=== PATIENT | female | born 1985 | race Two or more races ===

== ENCOUNTER 2025-05-11 16:35 | Outpatient (CLI) | payer OTHER | END 2025-05-11 16:54 | disposition home or self-care (01) | LOC: NST 16:35 | PROVIDERS: ATTEND Obstetrics & Gynecology | DX: Z34.83 Encounter for supervision of other normal pregnancy, third trimester (principal) ==

== ENCOUNTER 2025-07-05 14:45 | Inpatient (IN) | payer OTHER ==
[~2025-07-05] VITALS: Ht 172.7 cm; Wt 3.6 kg
[2025-07-12 12:58] VITALS: BP 114/75
[2025-07-12 13:17] LABS: BASO % 0.2 % (0.1-1.2); EOS # 0.13 (0.04-0.54); EOS % 1.4 % (0.7-7.0); LYMPH # 2.02 (1.18-3.74); LYMPH % 21.8 % (19.3-53.1); MEAN PLATELET VOLUME 9.40 fl (9.4-12.4); MONO # 0.73 (0.24-0.82); MONO % 7.9 % (4.7-12.5); NEUT # 6.34 (1.56-6.13); NEUT % 68.4 % (34.0-71.1); RED CELL DISTRIBUTION WIDTH 14.1 % (11.6-14.4)
[2025-07-12] MEDS ORDERED: PRENATABS FA T1 EACH PO (13:24)
[2025-07-12] MEDS ORDERED: RINGERS SOLUTION,LACTATED 1,000 ML IV SCH (13:30)
[2025-07-12 13:36] LABS: INR 0.99
[2025-07-12 14:00] LABS: URINE APPEARANCE Cloudy; URINE BILIRRUBIN Negative (NEGATIVE); URINE BLOOD Negative; URINE COLOR Yellow; URINE GLUCOSE Negative (NEGATIVE); URINE KETONE Negative (NEGATIVE); URINE LEUKOCYTE Trace; URINE NITRATE Negative; URINE PROTEIN Negative (NEGATIVE); URINE UROBILINOGEN 0.2 E.U./dl
[2025-07-12 14:04] LABS: URINE BACTERIA 3246.0 uL (0.0-1933); URINE CAST 4.98 uL (0.0-1.40); URINE EPITHELIAL CELLS 15.5 uL (0.0-38.8); URINE RBC 2.7 uL (0.0-20.8); URINE WBC 112.9 uL (0.0-23.2)
[2025-07-12 14:26] LABS: ALT/SGPT 14.0 U/L (12-78); AST/SGOT 16.0 U/L (15-37); BILIRUBIN TOTAL 0.33 mg/dL (0.3-1.2); BUN CREA RATIO 15.0 (7.0-25.0); CREATININE SERUM 0.67 mg/dL (0.55-1.02); GFR 103.34; GLOBULINA 3.4 G/DL (2.4-3.5); GLUCOSE FASTING 89.0 mg/dL (65-100); OSMOLALITY SERUM 274.0 MOSM/KG (275-295)
[2025-07-12 14:30] LABS: TYPE CELLS SQUAMOUS; URINE MUCUS MODERATE
[2025-07-12] MEDS ORDERED: MORPHINE SULFATE 4 MG/ML CARTRIDGE IV PRN (15:00)
[2025-07-12 15:19] VITALS: BP 104/68
[2025-07-12] MEDS ORDERED: MISOPROSTOL 25 MCG TABLET VAG NR (17:15)
[2025-07-12] MEDS ORDERED: FAMOTIDINE/PF 20 MG in 0.9 % SODIUM CHLORIDE 8 ML IV PUSH PRN (19:15)
[2025-07-12 19:47] VITALS: BP 113/63
[2025-07-13 00:06] VITALS: BP 102/58
[2025-07-13 04:13] VITALS: BP 114/62
[2025-07-13] MEDS ORDERED: OXYTOCIN 20 UNITS/500ML RL PIGGYBAG IV ONE (07:14)
[2025-07-13 07:29] VITALS: BP 110/71
[2025-07-13] MEDS ORDERED: OXYTOCIN 500 ML IV ONE (07:30)
[2025-07-13 11:06] VITALS: BP 118/69
[2025-07-13 15:57] VITALS: BP 112/67
[2025-07-13] MEDS ORDERED: ERYTHROMYCIN BASE OPHT 1GM EACH TUBE OP ONE (18:37)
[2025-07-13] MEDS ORDERED: OXYTOCIN 10 UNITS/ML VIAL ONE (18:37)
[2025-07-13] MEDS ORDERED: CEFAZOLIN SODIUM 1,000 MG VIAL IV NR (19:15)
[2025-07-13] MEDS ORDERED: OXYTOCIN 1,000 ML IV ONE (19:15)
[2025-07-13] MEDS ORDERED: KETOROLAC TROMETHAMINE 30 MG VIAL IV SCH (20:00)
[2025-07-13] MEDS ORDERED: KETOROLAC TROMETHAMINE 30 MG VIAL ONE (21:41)
[2025-07-13] MEDS ORDERED: CEFAZOLIN SODIUM 1,000 MG VIAL ONE (21:45)
[2025-07-13 22:25] VITALS: BP 102/58
[2025-07-14 00:40] VITALS: BP 106/68
[2025-07-14] MEDS ORDERED: ACETAMINOPHEN 500 MG GEL..CAP PO SCH (06:00)
[2025-07-14 06:46] LABS: BASO % 0.2 % (0.1-1.2); EOS # 0.10 (0.04-0.54); EOS % 0.8 % (0.7-7.0); LYMPH # 2.08 (1.18-3.74); LYMPH % 15.8 % (19.3-53.1); MEAN PLATELET VOLUME 9.80 fl (9.4-12.4); MONO # 0.71 (0.24-0.82); MONO % 5.4 % (4.7-12.5); NEUT # 10.16 (1.56-6.13); NEUT % 77.4 % (34.0-71.1); RED CELL DISTRIBUTION WIDTH 13.8 % (11.6-14.4)
[2025-07-14 08:51] VITALS: BP 91/57
[2025-07-14] MEDS ORDERED: IRON FUM,PS/FOLIC/BCOMP,C NO.9 1 CAP CAPSULE PO SCH (09:00)
[2025-07-14] MEDS ORDERED: DOCUSATE SODIUM 100MG CAP PO SCH (09:00)
[2025-07-14] MEDS ORDERED: PNV,CALCIUM 72/IRON/FOLIC ACID 1 TAB TABLET PO SCH (09:00)
[2025-07-14] MEDS ORDERED: SIMETHICONE 125 MG CAPSULE PO SCH (09:00)
[2025-07-14] MEDS ORDERED: GABAPENTIN 300 MG CAPSULE PO SCH (09:00)
[2025-07-14 18:40] VITALS: BP 102/69; O2SAT 98
[2025-07-15 00:37] VITALS: BP 99/66; O2SAT 98
[2025-07-15 08:00] VITALS: BP 102/65
== END 2025-07-15 15:13 | disposition home or self-care (01) | DRG 788 ==
LOC: LDR 07-12 11:34 → OB/GYN 07-13 21:07
PROVIDERS: ADMIT Obstetrics & Gynecology Gynecology; ATTEND Obstetrics & Gynecology Gynecology
PROC: 3E0P7VZ Introduction of Hormone into Female Reproductive, Via Natural or Artificial Opening (ICD-10-PCS; 2025-07-12)
PROC: 4A1HXCZ Monitoring of Products of Conception, Cardiac Rate, External Approach (ICD-10-PCS; 2025-07-12)
PROC: 3E033VJ Introduction of Other Hormone into Peripheral Vein, Percutaneous Approach (ICD-10-PCS; 2025-07-13)
PROC: 10D00Z1 Extraction of Products of Conception, Low, Open Approach (ICD-10-PCS; principal; 2025-07-13 23:00)
DX: O61.0 Failed medical induction of labor (principal); Z3A.39 39 weeks gestation of pregnancy; Z37.0 Single live birth